=== PATIENT | female | born 1995 | race Caucasian/White ===

== ENCOUNTER 2018-10-24 21:42 | Emergency (ER) | payer BC, OTHER ==
[~2018-10-24] VITALS: Ht 157.5 cm; Wt 58.8 kg
[~2018-10-24 21:42] MED LIST: IBUP-1542 PO; NO MEDS
[2018-10-24 21:43] VITALS: BP 134/88; PULSE 80; RESP 19; Ht 157.5 cm; Wt 58.8 kg
--- NOTE | 2018-10-24 23:55 | ERD ---
ER Documentation Chief Complaint Chief Complaint LEFT WRIST INJ; HURT ATTEMPTING TO CATCH SELF X3DAYS AGO HPI Patient is a 23-year-old female, no past medical history, presents the ER for c oncerns of left hand pain after a fall injury 3 days ago. Patient states she tripped she tried to catch her fall with her left hand. Patient reports pain to the mid hand. Patient did not hit her head. Patient is right-hand dominant. Patient previous fractures or dislocations. ROS All systems reviewed and are negative except as per history of present illness. Medications Home Meds Active Scripts Ibuprofen* (Motrin*) 600 Mg Tab, 600 MG PO Q6, #30 TAB Prov:VASILE SILVA PA-C 10/24/18 Reported Medications [No Meds] No Conflict Check 08/26/12 Allergies Allergies: Coded Allergies: No Known Drug Allergies (Verified Allergy, Mild, 08/26/12) PMhx/Soc Medical and Surgical Hx: pt denies Medical Hx, pt denies Surgical Hx History of Surgery: No Anesthesia Reaction: No Hx Neurological Disorder: No Hx Respiratory Disorders: No Hx Cardiac Disorders: No Hx Psychiatric Problems: No Hx Miscellaneous Medical Probl: No Hx Alcohol Use: Yes (socially) Hx Substance Use: No Hx Tobacco Use: No Smoking Status: Never smoker FmHx Family History: No diabetes Physical Exam Vitals Vital Signs Date Temp Pulse Resp B/P (MAP) Pulse Ox O2 O2 Flow FiO2 Time Delivery Rate 10/24/18 97.5 80 19 134/88 99 21:43 (103) Physical Exam GENERAL: Well-developed, well-nourished female. Appears in no acute distress. HEAD: Normocephalic, atraumatic. EYES: Pupils are equally reactive bilaterally. EOMs grossly intact. No conjunctival erythema. NECK: Supple. No meningismus. Normal range of motion of the neck. EXTREMITIES: Equal pulses bilaterally. No peripheral clubbing, cyanosis or edema. No unilateral leg swelling. NEUROLOGIC: Alert and oriented. Moving all four extremities without any difficul ty. Normal speech. Steady gait. SKIN: Normal color. Warm and dry. No rashes or lesions. RUE: No deformity, erythema, ecchymosis. Mild swelling noted to the mid hand, over fourth and fifth metacarpals.. Skin intact. Normal range of motion of all digits. Tender to palpation of the fourth and fifth metacarpals. Normal range of motion of the wrist. Nontender to palpation of the distal wrist. Sensation intact to light touch. Neurovascularly intact. (Able to give thumbs up, make an ok sign, cross digits 2 and 3, thumb to pinky opposition. 2+ RP.) No snuffbox tenderness. Procedures/MDM MEDICAL DECISION MAKING: This is a 23-year-old female presents the ER for concerns of left hand pain after fall injury 3 days ago.. Vital signs were reviewed. Patient was afebrile. X-ray imaging was negative for acute fracture or dislocation. See formal report above. At this time, patient presentation was considered the hand strain. Low suspicion for fracture, dislocation, mallet finger, trigger finger, os teomyelitis, compartment syndrome. Unable to rule out any ligament or tendon injuries at this time. PRESCRIPTIONS: Ibuprofen DISCHARGE: At this time, patient is stable for discharge and outpatient management. RICE therapy and ROM exercises were advised to avoid stiffness. I have instructed the patient to follow-up with his/her primary care physician in 1-2 days. I have discussed with the patient the possibility of needing to see an solar energy specialist for further workup and imaging if the pain persists. I have instructed the patient to promptly return to the ER for any new or worsening symptoms including increased pain, swelling, redness, warmth or fever. The patient and/or family expressed understanding of and agreement with this plan. All questions were answered. Home care instructions were provided. Disclaimer: Inadvertent spelling and grammatical errors are likely due to [employer]/dictation software use and do not reflect on the overall quality of patient care. Also, please note that the electronic time recorded on this note does not necessarily reflect the actual time of the patient encounter. Departure Diagnosis: Primary Impression: Wrist injury Encounter type: initial encounter Laterality: left Qualified Codes: S69.92XA - Unspecified injury of left wrist, hand and finger(s), initial encounter Condition: Fair Patient Instructions: Muscle Strain, Extremity Referrals: LAVON ESQUEDA MD (PCP) Additional Instructions: Call your primary care doctor TOMORROW for an appointment during the next 1-2 days.See the doctor sooner or return here if your condition worsens before your appointment time. VASILE SILVA PA-C Oct 24, 2018 23:55
== END 2018-10-25 00:46 | disposition home or self-care (01) ==
LOC: FTE 21:42
DX: S69.92XA Unspecified injury of left wrist, hand and finger(s), initial encounter (principal); W18.39XA Other fall on same level, initial encounter; Y92.9 Unspecified place or not applicable